=== PATIENT | male | born 1955 | race Caucasian/White ===

== ENCOUNTER 2017-04-02 10:50 | Inpatient (IN) | payer MEDICAID ==
[~2017-04-02] VITALS: Ht 170.2 cm; Wt 73.0 kg
[2017-04-02] MEDS ORDERED: TRAZODONE50 M1 PO (11:43)
[2017-04-02] MEDS ORDERED: FUROSEMIDE20 MG PO (11:44)
[2017-04-02] MEDS ORDERED: ZYLOPRIM300 MG PO (11:44)
[2017-04-02] MEDS ORDERED: HYDROCHLOROTHIA25 MG PO (11:44)
[2017-04-02] MEDS ORDERED: TOPROL XL50 MG PO (11:45)
[2017-04-02] MEDS ORDERED: INDOMETHACIN75 MG PO (11:45)
[2017-04-02] MEDS ORDERED: DILTIAZEM HCL240 MG PO (11:46)
[2017-04-02 11:57] LABS: microscopic required? YES; urine erythrocyte 2+ (NEGATIVE)
[2017-04-02 12:05] LABS: BASOPHIL % 0.2 % (0-2); PLATELET COUNT 134 x10^3mcL (130-400)
[2017-04-02 12:08] LABS: RED CELL DISTRIBUTION WIDTH 15.5 % (11.5-14.5)
[2017-04-02 12:21] LABS: AMPHETAMINE QUAL UR NONE DETECTED (NEG <=1000)
[2017-04-02 12:42] LABS: rbc morphology (normal/abnorm) ABNORMAL (NORMAL)
[2017-04-02 12:43] LABS: ovalocyte/elliptocyte 1+; schistocyte (helmet cell) 1+
[2017-04-02 13:06] LABS: ALKALINE PHOSPHATASE 44 U/L (46-116); ALT/SGPT 26 U/L (16-63); AST/SGOT 19 U/L (15-37); BILIRUBIN TOTAL 0.2 mg/dL (0.20-1.00); CALCIUM 7.4 mg/dL (8.5-10.1); CARBON DIOXIDE 23.2 mmol/L (21-32); CHLORIDE SERUM 95 mmol/L (98-107); GLUCOSE SERUM 140 mg/dL (74-106); LIPASE 610 IU/L (73-393); MAGNESIUM 1.7 mg/dL (1.8-2.4); POTASSIUM SERUM 4.7 mmol/L (3.5-5.1); SODIUM SERUM 137 mmol/L (136-145)
[2017-04-02 13:21] VITALS: BP 144/55
[2017-04-02 13:25] LABS: ALBUMIN 2.8 g/dL (3.4-5.0); GFR1 4 mL/min; TOTAL PROTEIN, SERUM 5.6 g/dL (6.4-8.2)
[2017-04-02 13:26] LABS: AMYLASE 294 U/L (25-115); CHOLESTEROL 78 mg/dL (<200); CREATININE SERUM 12.5 mg/dL (0.7-1.3); HDL CHOLESTEROL 23 mg/dL (40-60)
[2017-04-02 14:17] LABS: IRON 74 ug/dL (65-170); TOTAL IRON BINDING CAPACITY 191 ug/dL (250-450)
[2017-04-02 14:32] LABS: RED BLOOD CELLS 1.21 M/mm3 (4.52-5.90)
[2017-04-02 17:42] VITALS: BP 110/66
[2017-04-02 19:25] VITALS: BP 143/72
[2017-04-03] VITALS (8 sets, daily range): BP systolic 134–158; BP diastolic 68–79
[2017-04-03 06:36] LABS: CALCIUM 7.4 mg/dL (8.5-10.1); CARBON DIOXIDE 23.1 mmol/L (21-32); PHOSPHOROUS 5.8 mg/dL (2.5-4.9); POTASSIUM SERUM 3.6 mmol/L (3.5-5.1)
[2017-04-03 06:42] LABS: CREATININE SERUM 9.7 mg/dL (0.7-1.3)
[2017-04-03 06:58] LABS: BASOPHIL % 0.4 % (0-2); RED CELL DISTRIBUTION WIDTH 13.9 % (11.5-14.5)
[2017-04-03 07:02] LABS: PLATELET COUNT 93 x10^3mcL (130-400)
[2017-04-03 07:04] LABS: ovalocyte/elliptocyte 1+; rbc morphology (normal/abnorm) ABNORMAL (NORMAL); schistocyte (helmet cell) 1+
[2017-04-03 17:18] LABS: BASOPHIL % 0.2 % (0-2)
[2017-04-03 17:31] LABS: PLATELET COUNT 103 x10^3mcL (130-400); RED CELL DISTRIBUTION WIDTH 14.7 % (11.5-14.5)
[2017-04-03 18:04] LABS: target cell (codocyte) 2+
[2017-04-03 18:10] LABS: rbc morphology (normal/abnorm) ABNORMAL (NORMAL)
[2017-04-03 21:14] LABS: CALCIUM 7.7 mg/dL (8.5-10.1); CARBON DIOXIDE 28.1 mmol/L (21-32); PHOSPHOROUS 4.7 mg/dL (2.5-4.9); POTASSIUM SERUM 3.6 mmol/L (3.5-5.1)
[2017-04-03 21:17] LABS: CREATININE SERUM 8.3 mg/dL (0.7-1.3)
[2017-04-03 22:18] LABS: BASOPHIL % 0.4 % (0-2); RED CELL DISTRIBUTION WIDTH 14.4 % (11.5-14.5)
[2017-04-03 22:26] LABS: PLATELET COUNT 100 x10^3mcL (130-400)
[2017-04-03 22:35] LABS: rbc morphology (normal/abnorm) ABNORMAL (NORMAL)
[2017-04-03 22:36] LABS: ovalocyte/elliptocyte 1+; tear drop cell (dacryocyte) 1+
[2017-04-04 02:02] VITALS: BP 126/69
[2017-04-04 06:18] VITALS: BP 138/77
[2017-04-04 07:10] LABS: CALCIUM 7.7 mg/dL (8.5-10.1); CARBON DIOXIDE 27.8 mmol/L (21-32); POTASSIUM SERUM 3.7 mmol/L (3.5-5.1)
[2017-04-04 07:37] LABS: BASOPHIL % 0.6 % (0-2)
[2017-04-04 07:38] LABS: PLATELET COUNT 96 x10^3mcL (130-400); RED CELL DISTRIBUTION WIDTH 14.8 % (11.5-14.5)
[2017-04-04 07:40] LABS: rbc morphology (normal/abnorm) ABNORMAL (NORMAL)
[2017-04-04 07:41] LABS: ovalocyte/elliptocyte 1+; tear drop cell (dacryocyte) 1+
[2017-04-04 07:42] LABS: CREATININE SERUM 8.6 mg/dL (0.7-1.3)
[2017-04-04 09:13] VITALS: BP 138/76
[2017-04-04 14:00] VITALS: BP 124/69
[2017-04-04 19:00] VITALS: BP 142/70
[2017-04-04 22:08] VITALS: BP 146/76
[2017-04-05 05:23] VITALS: BP 126/81
[2017-04-05 07:24] LABS: CALCIUM 7.8 mg/dL (8.5-10.1); CARBON DIOXIDE 24.5 mmol/L (21-32); MAGNESIUM 1.5 mg/dL (1.8-2.4); PHOSPHOROUS 3.6 mg/dL (2.5-4.9); POTASSIUM SERUM 3.9 mmol/L (3.5-5.1)
[2017-04-05 07:28] LABS: CREATININE SERUM 6.3 mg/dL (0.7-1.3)
[2017-04-05 08:12] LABS: BASOPHIL % 0.6 % (0-2); RED CELL DISTRIBUTION WIDTH 14.4 % (11.5-14.5)
[2017-04-05 08:29] LABS: PLATELET COUNT 90 x10^3mcL (130-400)
[2017-04-05 10:34] LABS: rbc morphology (normal/abnorm) ABNORMAL (NORMAL)
[2017-04-05 13:26] VITALS: BP 132/80
[2017-04-05 16:10] VITALS: BP 120/75
[2017-04-05 16:35] VITALS: BP 123/75
[2017-04-05 22:05] VITALS: BP 137/78
[2017-04-06] VITALS (8 sets, daily range): BP systolic 105–125; BP diastolic 59–74
[2017-04-06 06:53] LABS: BASOPHIL % 0.5 % (0-2)
[2017-04-06 07:15] LABS: PLATELET COUNT 79 x10^3mcL (130-400); RED CELL DISTRIBUTION WIDTH 15.1 % (11.5-14.5)
[2017-04-06 07:18] LABS: CALCIUM 7.6 mg/dL (8.5-10.1); CARBON DIOXIDE 23.6 mmol/L (21-32); MAGNESIUM 2.4 mg/dL (1.8-2.4); POTASSIUM SERUM 3.5 mmol/L (3.5-5.1)
[2017-04-06 07:20] LABS: CREATININE SERUM 5.7 mg/dL (0.7-1.3)
[2017-04-06 09:47] LABS: rbc morphology (normal/abnorm) ABNORMAL (NORMAL)
[2017-04-06 20:42] LABS: BASOPHIL % 0.7 % (0-2)
[2017-04-06 20:47] LABS: PLATELET COUNT 76 x10^3mcL (130-400); RED CELL DISTRIBUTION WIDTH 14.8 % (11.5-14.5)
[2017-04-06 20:54] LABS: BILIRUBIN DIRECT 0.06 mg/dL (0.0-0.2); BILIRUBIN TOTAL 0.34 mg/dL (0.20-1.00)
[2017-04-06 21:04] LABS: rbc morphology (normal/abnorm) ABNORMAL (NORMAL); tear drop cell (dacryocyte) 1+
[2017-04-06 21:05] LABS: ovalocyte/elliptocyte 1+; rbc morphology (normal/abnorm) ABNORMAL (NORMAL); tear drop cell (dacryocyte) 1+
[2017-04-06 21:22] LABS: ALBUMIN 1.9 g/dL (3.4-5.0); TOTAL PROTEIN, SERUM 3.9 g/dL (6.4-8.2)
[2017-04-07 04:13] LABS: CALCIUM 7.8 mg/dL (8.5-10.1); CARBON DIOXIDE 22.7 mmol/L (21-32); MAGNESIUM 2.5 mg/dL (1.8-2.4); PHOSPHOROUS 4.7 mg/dL (2.5-4.9); POTASSIUM SERUM 4.5 mmol/L (3.5-5.1)
[2017-04-07 04:16] LABS: CREATININE SERUM 6.9 mg/dL (0.7-1.3)
[2017-04-07 04:24] LABS: BASOPHIL % 0.6 % (0-2)
[2017-04-07 04:25] LABS: PLATELET COUNT 80 x10^3mcL (130-400); RED CELL DISTRIBUTION WIDTH 14.8 % (11.5-14.5)
[2017-04-07 04:27] LABS: rbc morphology (normal/abnorm) ABNORMAL (NORMAL)
[2017-04-07 06:46] VITALS: BP 124/73
[2017-04-07 08:45] VITALS: BP 121/64
[2017-04-07 09:27] LABS: BASOPHIL % 0.5 % (0-2); RED CELL DISTRIBUTION WIDTH 14.2 % (11.5-14.5)
[2017-04-07 09:32] LABS: PLATELET COUNT 74 x10^3mcL (130-400)
[2017-04-07 10:09] VITALS: BP 121/64
[2017-04-07 10:15] LABS: ovalocyte/elliptocyte 1+; rbc morphology (normal/abnorm) ABNORMAL (NORMAL); tear drop cell (dacryocyte) 1+
[2017-04-07 13:10] VITALS: BP 141/73
[2017-04-07 16:53] LABS: BASOPHIL % 0.6 % (0-2); RED CELL DISTRIBUTION WIDTH 14.1 % (11.5-14.5)
[2017-04-07 17:05] LABS: PLATELET COUNT 85 x10^3mcL (130-400)
[2017-04-07 21:04] VITALS: BP 146/79
[2017-04-08 05:44] VITALS: BP 120/78
[2017-04-08 06:46] LABS: BILIRUBIN TOTAL 0.45 mg/dL (0.20-1.00); CALCIUM 7.4 mg/dL (8.5-10.1); CARBON DIOXIDE 28.3 mmol/L (21-32); MAGNESIUM 1.6 mg/dL (1.8-2.4); PHOSPHOROUS 3.1 mg/dL (2.5-4.9); POTASSIUM SERUM 4.1 mmol/L (3.5-5.1)
[2017-04-08 07:02] LABS: ALBUMIN 1.7 g/dL (3.4-5.0); CREATININE SERUM 4.5 mg/dL (0.7-1.3); TOTAL PROTEIN, SERUM 3.7 g/dL (6.4-8.2)
[2017-04-08 07:12] LABS: BASOPHIL % 0.3 % (0-2)
[2017-04-08 07:16] LABS: PLATELET COUNT 76 x10^3mcL (130-400)
[2017-04-08 09:08] LABS: rbc morphology (normal/abnorm) ABNORMAL (NORMAL); schistocyte (helmet cell) 1+
[2017-04-08 11:30] LABS: rbc morphology (normal/abnorm) ABNORMAL (NORMAL); schistocyte (helmet cell) 1+
[2017-04-08 11:46] VITALS: BP 121/75
[2017-04-08 16:22] VITALS: BP 118/72
[2017-04-08 19:20] VITALS: BP 124/71
[2017-04-08 23:15] VITALS: BP 142/70
[2017-04-09 03:30] VITALS: BP 138/79
[2017-04-09 07:26] VITALS: BP 145/82
[2017-04-09 07:27] LABS: CALCIUM 7.6 mg/dL (8.5-10.1); CARBON DIOXIDE 25.7 mmol/L (21-32); PHOSPHOROUS 4.2 mg/dL (2.5-4.9); POTASSIUM SERUM 4.3 mmol/L (3.5-5.1)
[2017-04-09 07:33] LABS: CREATININE SERUM 6.5 mg/dL (0.7-1.3)
[2017-04-09 07:44] VITALS: Ht 170.2 cm; Wt 73.0 kg
[2017-04-09 09:17] LABS: BASOPHIL % 0.1 % (0-2)
[2017-04-09 09:19] LABS: RED CELL DISTRIBUTION WIDTH 14.9 % (11.5-14.5)
[2017-04-09 09:44] LABS: rbc morphology (normal/abnorm) ABNORMAL (NORMAL)
[2017-04-09 10:00] LABS: PLATELET COUNT 99 x10^3mcL (130-400)
[2017-04-09 11:58] VITALS: BP 138/79
[2017-04-09 15:34] VITALS: BP 121/77
[2017-04-09 18:20] VITALS: BP 115/73
[2017-04-09 19:08] LABS: BASOPHIL % 0.7 % (0-2)
[2017-04-09 19:09] LABS: RED CELL DISTRIBUTION WIDTH 15.3 % (11.5-14.5)
[2017-04-09 19:10] LABS: PLATELET COUNT 113 x10^3mcL (130-400)
[2017-04-09 21:14] VITALS: BP 147/83
[2017-04-10] VITALS (7 sets, daily range): BP systolic 95–172; BP diastolic 52–89
[2017-04-10 06:26] LABS: CALCIUM 7.2 mg/dL (8.5-10.1); CARBON DIOXIDE 28.8 mmol/L (21-32); MAGNESIUM 1.8 mg/dL (1.8-2.4); PHOSPHOROUS 3.3 mg/dL (2.5-4.9); POTASSIUM SERUM 3.5 mmol/L (3.5-5.1)
[2017-04-10 06:42] LABS: BASOPHIL % 0.7 % (0-2)
[2017-04-10 07:10] LABS: PLATELET COUNT 109 x10^3mcL (130-400); RED CELL DISTRIBUTION WIDTH 15.1 % (11.5-14.5)
[2017-04-10 08:12] LABS: rbc morphology (normal/abnorm) ABNORMAL (NORMAL)
[2017-04-10] MEDS ORDERED: LAC30L PO (17:13)
[2017-04-10] MEDS ORDERED: PROTONIX40 MG PO (17:14)
[2017-04-10] MEDS ORDERED: NATURAL IRON65 MG PO (17:17)
[2017-04-10] MEDS ORDERED: CARAFATE1 GM PO (17:21)
== END 2017-04-10 18:22 | disposition home or self-care (01) | DRG 241 ==
LOC: ED 10:50 → DU 12:33 → IC 12:33 → DU 13:00 → IC 04-08 10:18 → MU 04-08 11:12 → IC 04-08 11:45 → DU 04-09 15:06 → IC 04-09 16:45 → DU 04-09 16:48
PROVIDERS: Emergency Medicine; Family Medicine; Internal Medicine; Internal Medicine Gastroenterology; Internal Medicine Nephrology; Surgery; ADMIT Family Medicine
PROC: B543ZZA Ultrasonography of Right Jugular Veins, Guidance (ICD-10-PCS; 2017-04-02)
PROC: 0DB78ZX Excision of Stomach, Pylorus, Via Natural or Artificial Opening Endoscopic, Diagnostic (ICD-10-PCS; principal; 2017-04-02 14:00)
PROC: 05HM33Z Insertion of Infusion Device into Right Internal Jugular Vein, Percutaneous Approach (ICD-10-PCS; 2017-04-02 14:00)
PROC: 05HM33Z Insertion of Infusion Device into Right Internal Jugular Vein, Percutaneous Approach (ICD-10-PCS; 2017-04-05)
PROC: B543ZZA Ultrasonography of Right Jugular Veins, Guidance (ICD-10-PCS; 2017-04-05)
PROC: 0DJD8ZZ Inspection of Lower Intestinal Tract, Via Natural or Artificial Opening Endoscopic (ICD-10-PCS; 2017-04-06)
PROC: 05HN33Z Insertion of Infusion Device into Left Internal Jugular Vein, Percutaneous Approach (ICD-10-PCS; 2017-04-08)
PROC: B544ZZA Ultrasonography of Left Jugular Veins, Guidance (ICD-10-PCS; 2017-04-08)
PROC: 0W3P8ZZ Control Bleeding in Gastrointestinal Tract, Via Natural or Artificial Opening Endoscopic (ICD-10-PCS; 2017-04-08 14:30)
DX: K26.4 Chronic or unspecified duodenal ulcer with hemorrhage (principal); N17.0 Acute kidney failure with tubular necrosis; E43 Unspecified severe protein-calorie malnutrition; K85.90 Acute pancreatitis without necrosis or infection, unspecified; I12.0 Hypertensive chronic kidney disease with stage 5 chronic kidney disease or end stage renal disease; N18.5 Chronic kidney disease, stage 5; D62 Acute posthemorrhagic anemia; N14.1 Nephropathy induced by other drugs, medicaments and biological substances; M10.9 Gout, unspecified; K29.90 Gastroduodenitis, unspecified, without bleeding; D63.1 Anemia in chronic kidney disease; Z68.24 Body mass index [BMI] 24.0-24.9, adult; T39.315A Adverse effect of propionic acid derivatives, initial encounter; Y92.018 Other place in single-family (private) house as the place of occurrence of the external cause; E83.41 Hypermagnesemia; F10.21 Alcohol dependence, in remission
CPT/HCPCS: 36556; 43235; 45378; 83880; 86580; 87046; 87046-59; 90658; 90732; 94150; 97110-GP; 97116-GP; 97530-GP; A4301; C9113; G0480; J0171; J0690; J0885-EC; J1170; J1200; J1250; J1610; J1642; J1644; J2001; J2060; J2250; J2310; J2405; J2597; J2765; J2916; J3010; J3475; J3490; J7030; J7040; J7050; P9016; P9035; P9059; Q0092; Q0163